=== PATIENT | female | born 1975 | race Caucasian/White ===

== ENCOUNTER 2020-08-28 15:23 | Outpatient (REF) | payer OTHER, SELFPAY ==
--- NOTE | 2020-08-28 | US_ITS ---
EXAMINATION: US DIAGNOSTIC ULTRASOUND BREAST, LEFT CLINICAL INFORMATION: Recall from screening for smooth nodule central 6:00 position under 1 cm. [place] Score 11%. COMPARISON: Mammography 08/08/2020, 08/25/2018, 12/25/2015. TECHNIQUE: Ultrasound left breast is targeted to the 5:00 to 7:00 position. Grayscale imaging and color Doppler are performed without and with harmonics. FINDINGS: There are clustered microcysts versus a small cyst with avascular internal septations 6:00 position 4 cm from nipple measuring approximately 6 x 3 mm. There is increased through-transmission of sound. This most likely corresponds to the finding on recent mammography. There is no solid mass or architectural abnormality or focal duct ectasia. Results are discussed with the patient at time of visit. Management plan is for short interval six-month follow-up left mammography and if warranted targeted ultrasound at same visit. IMPRESSION: Clustered microcysts versus small cyst with avascular internal septations 6:00 position 4 cm from nipple likely corresponding to finding on recent mammography. No solid mass. ASSESSMENT: BI-RADS 3: Probably Benign RECOMMENDATION: Diagnostic left mammography in 6 months. Targeted left breast ultrasound if warranted at same visit. This patient's information was entered into a reminder system with a target due date for their next mammogram.
== END 2020-08-28 15:24 | disposition home or self-care (01) ==
LOC: HO.MAMMO 15:23
PROVIDERS: Visit Provider Internal Medicine
DX: R92.2 Inconclusive mammogram (principal)
CPT/HCPCS: 76642

== ENCOUNTER 2021-04-09 12:57 | Outpatient (REF) | payer OTHER, SELFPAY ==
--- NOTE | ~2021-04-09 | MM_ITS ---
EXAMINATION: MM DIAGNOSTIC DIGITAL BREAST TOMOSYNTHESIS, LEFT CLINICAL INFORMATION: Six-month follow-up left breast nodule The lifetime risk of breast cancer based on the TYRER-CUZICK Model is 10.2%. COMPARISON: Mammography: 08/28/2020 and studies dating back to 12/25/2015 TECHNIQUE: Digital breast tomosynthesis is performed in both the craniocaudal and mediolateral oblique views along with computer-aided detection (CAD). Synthesized 2D images are generated from the tomosynthesis. FINDINGS: The breasts are heterogeneously dense, which may obscure small masses (ACR BI-RADS breast composition Category c). There is again noted to be an approximately 5 x 3 mm partially circumscribed density about the inferior medial aspect of the left breast. No associated microcalcifications or suspicious spiculations identified. This lies approximately 6 cm from the nipple. No new suspicious masses or suspicious grouping of microcalcifications is identified. Patient could not stay for ultrasound of the left breast today and has scheduled to return next week to obtain the ultrasound. MM/MM tomosynthesis diagnostic LT IMPRESSION: Awaiting ultrasound for further evaluation and comparison of left breast nodule about the inferior medial aspect. ASSESSMENT: BI-RADS 0: Incomplete - Need Additional Imaging Evaluation RECOMMENDATION: Awaiting ultrasound. This patient's information was entered into a reminder system with a target due date for their next mammogram.
== END 2021-04-09 12:58 | disposition home or self-care (01) ==
LOC: HO.MAMMO 12:57
PROVIDERS: Visit Provider Internal Medicine
DX: R92.2 Inconclusive mammogram (principal)
CPT/HCPCS: 77061; 77065

== ENCOUNTER 2021-04-15 15:27 | Outpatient (REF) | payer OTHER, SELFPAY ==
--- NOTE | ~2021-04-15 | US_ITS ---
EXAMINATION: US DIAGNOSTIC ULTRASOUND BREAST, LEFT CLINICAL INFORMATION: Left breast nodule. COMPARISON: Mammography of 1and ultrasound of 08/28/2020. TECHNIQUE: Ultrasound of the breast is performed with real-time santoro scale imaging and color Doppler. FINDINGS: At the 6 o'clock position approximately 4 cm from the nipple there is again noted to be a heterogeneous and hypoechoic 9 x 3 mm density which is avascular and wider than it is tall. On today's study there are 2 cysts seen to be present adjacent to each other within this lesion. Recommend 6 month follow-up left breast mammography and ultrasound for continued surveillance. Results are discussed with the patient at time of visit. US/US breast LT limited IMPRESSION: Probably benign left breast lesion which appears somewhat more cystic on today's study. ASSESSMENT: BI-RADS 3: Probably Benign RECOMMENDATION: Diagnostic mammography in 6 months. This patient's information was entered into a reminder system with a target due date for their next mammogram.
== END 2021-04-15 15:28 | disposition home or self-care (01) ==
LOC: HO.MAMMO 15:27
PROVIDERS: Visit Provider Internal Medicine
DX: N63.25 Unspecified lump in the left breast, overlapping quadrants (principal)
CPT/HCPCS: 76642